=== PATIENT | male | born 1950 | race African-American/Black ===

== ENCOUNTER 2017-02-21 22:10 | Inpatient (IN) | payer OTHER, MEDICAID ==
--- NOTE | 2017-02-21 22:34 | EDPHY ---
H & P Time Seen by Provider: 02/21/17 22:27 HPI/ROS: Chief Complaint: Weakness, confusion HPI: 67-year-old male with past medical history seizure disorder, hypertension is presenting with 2 days of increasing weakness and confusion. Patient reported that he went for a walk on Friday. On Friday noticed leg weakness. He has had several falls and states that his dog is not come down. He is describing weakness in both of his legs equal on both sides. Daughter also noted that his face seems more puffy than normal. He has also been complaining of some ringing in his ears earlier tonight. He is normally alert an oriented to person place and time. At this time he is only oriented x2. Denies any fevers or chills. No cough. Denies headache. No nausea or vomiting. Patient states that he has been taking his medications however his daughter reports that he is only taking them intermittently and she is finding them around the house. He has a visiting nurse that comes in once a week to arrange his medications. Otherwise he lives alone but doctors been staying with him for the last 2 days. She denies any seizure activity. In addition to his usual medications he does occasionally take oxycodone for chronic pain but has not been taking this significantly recently. Patient states that he is having a hard time getting up and generally walking around the house. No difficulty with urination. No numbness or tingling. No back pain. ROS: 10 point Review of Systems is negative except as noted in the HPI. PMH: Hypertension, seizure disorder Social History: Positive for smoking, drinks alcohol at most 2 times a week, no recreational drug use Family History: non-contributory Physical Exam: Gen: Awake, Alert, No Distress, oriented only x2 HEENT: Nose: no rhinorrhea Eyes: PERRLA, EOMI Mouth: Moist mucosa Neck: Supple, no JVD Chest: nontender, lungs clear to auscultation Heart: S1, S2 normal, no murmur Abd: Soft, non-tender, no guarding Back: no CVA tenderness, no midline tenderness Ext: no edema, non-tender Skin: no rash Neuro: CN II-XII intact, Sensation grossly intact, he has 5 in 5 upper extremity strength, 3 on 5 lower extremity strength bilaterally. He has decreased deep tendon reflexes in his patellar reflexes. Toes are downgoing. 2 + DP and PT pulses. Capillary refills less than 2 seconds. - Personal History Tetanus Vaccine Date: within last 10 years - Medical/Surgical History Hx Asthma: No Hx Chronic Respiratory Disease: No Hx Diabetes: No Hx Cardiac Disease: No Hx Renal Disease: Yes Hx Cirrhosis: No Hx Alcoholism: No Hx HIV/AIDS: No Hx Splenectomy or Spleen Trauma: No Other PMH: PMH: HTN, seizure disorder, arthritis in B knees, craniotomy due to brain aneurysm - Social History Smoking Status: Current every day smoker Constitutional: Initial Vital Signs Temperature (C) 37.1 C 02/21/17 22:15 Heart Rate 69 02/21/17 22:15 Respiratory Rate 18 02/21/17 22:15 Blood Pressure 207/128 H 02/21/17 22:15 O2 Sat (%) 96 02/21/17 22:15 O2 Delivery Mode Room Air Allergies/Adverse Reactions: aspirin [Aspirin] Allergy (Unknown, Verified 02/21/17 22:28) ibuprofen Allergy (Unknown, Verified 02/21/17 22:28) Home Medications: Medication Instructions Recorded Keppra 1000 mg 1,000 mg PO BID 08/04/15 lamOTRIGine [Lamotrigine] 200 mg PO TID 08/05/15 oxyCODONE HCL/ACETAMINOPHEN 1 each PO Q6H PRN 08/05/15 [Percocet 10-325 mg Tablet] Verapamil ER [Calan SR/ER 120MG 120 mg PO DAILY@08 #30 tab 08/12/15 (*)] Lisinopril 10/24/15 Peg 3350/Na Sulf,Bicarb,Cl/KCl 4,000 ml PO AD #1 btl 04/19/16 [Golytely (RX)] Amitiza 02/21/17 Metoprolol Tartrate 02/21/17 Medical Decision Making - Diagnostics EKG Interpretation: ECG time 10:57 p.m., sinus rhythm with a rate of 63, normal axis, there is a first-degree AV block. There is evidence of LVH when he has a repolarization pattern in V2. Does have T-wave inversions in for the 4 through V6. These are new as compared to an ECG from August 10, 2015. Imaging Results: CT scan of the head shows no bleed, no mass, there is an old aneurysm clip on the right with chronic encephalomalacia. There is a small increase in the left lacunar infarct compared to his study from 2016. Study interpreted by Dr. Kaufman Imaging: Discussed imaging studies w/ director call center sales Radiologist ED Course/Re-evaluation: 67-year-old male with increasing weakness. No focal neurologic deficit on examination. ECG shows some new T-wave inversions but nothing else acute. Blood work is entirely normal. CT scan shows a new looking increased from prior but no other abnormalities. He is awake and alert but oriented only x2. Still awaiting a urinalysis. I have discussed with Dr. Mcmahon, hospitalist. She will admit to her service for further evaluation. Patient is noted to be hypertensive to 210 systolic on presentation. I have given 5 mg of labetalol. Blood pressure systolic came down to 177. Patient is without complaint resting comfortably. - Data Points Laboratory Results: Laboratory Results 02/21/17 22:15 02/21/17 22:15 02/21/17 02/21/17 02/21/17 22:15 22:15 00:20 WBC 4.43 10^3/uL 10^3/uL (3.80-9.50) RBC 5.34 10^6/uL 10^6/uL (4.40-6.38) Hgb 16.1 g/dL g/dL (13.7-17.5) Hct 48.3 % % (40.0-51.0) MCV 90.4 fL fL (81.5-99.8) MCH 30.1 pg pg (27.9-34.1) MCHC 33.3 g/dL g/dL (32.4-36.7) RDW 12.7 % % (11.5-15.2) Plt Count 162 10^3/uL 10^3/uL (150-400) MPV 11.7 fL fL (8.7-11.7) Neut % (Auto) 55.9 % % (39.3-74.2) Lymph % (Auto) 29.6 % % (15.0-45.0) [place] % (Auto) 12.2 % % (4.5-13.0) Eos % (Auto) 1.6 % % (0.6-7.6) Baso % (Auto) 0.5 % % (0.3-1.7) Nucleat RBC Rel Count 0.0 % % (0.0-0.2) Absolute Neuts (auto) 2.48 10^3/uL 10^3/uL (1.70-6.50) Absolute Lymphs (auto) 1.31 10^3/uL 10^3/uL (1.00-3.00) Absolute Monos (auto) 0.54 10^3/uL 10^3/uL (0.30-0.80) Absolute Eos (auto) 0.07 10^3/uL 10^3/uL (0.03-0.40) Absolute Basos (auto) 0.02 10^3/uL 10^3/uL (0.02-0.10) Absolute Nucleated RBC 0.00 10^3/uL 10^3/uL (0-0.01) Immature Gran % 0.2 % % (0.0-1.1) Immature Gran # 0.01 10^3/uL 10^3/uL (0.00-0.10) Sodium 144 mEq/L mEq/L (134-144) Potassium 4.2 mEq/L mEq/L (3.5-5.2) Chloride 110 mEq/L mEq/L (97-110) Carbon Dioxide 21 mEq/l L mEq/l (22-31) Anion Gap 13 mEq/L mEq/L (8-16) BUN 16 mg/dL mg/dL (7-23) Creatinine 1.3 mg/dL mg/dL (0.7-1.3) Estimated GFR 55 Glucose 87 mg/dL mg/dL (70-100) Calcium 10.2 mg/dL mg/dL (8.5-10.4) Total Bilirubin 0.8 mg/dL mg/dL (0.1-1.4) Conjugated Bilirubin 0.4 mg/dL mg/dL (0.0-0.5) Unconjugated Bilirubin 0.4 mg/dL mg/dL (0.0-1.1) AST 22 IU/L IU/L (17-59) ALT 32 IU/L IU/L (21-72) Alkaline Phosphatase 113 IU/L IU/L (38-126) Troponin I < 0.012 ng/mL ng/mL (0-0.034) Total Protein 8.5 g/dL H g/dL (6.3-8.2) Albumin 4.4 g/dL g/dL (3.5-5.0) Lipase 38.0 IU/L IU/L (23-300) Urine Color Pending Urine Appearance Pending Urine pH Pending Ur Specific [place] Pending Urine Protein Pending Urine Ketones Pending Urine Blood Pending Urine Nitrate Pending Urine Bilirubin Pending Urine Urobilinogen Pending Ur Leukocyte Esterase Pending Urine Glucose Pending Medications Given: Discontinued Medications Labetalol HCl (Trandate Injection) 5 mg IVP ONCE ONE Stop: 02/21/17 23:31 Last Admin: 02/21/17 23:36 Dose: 5 mg Departure - Departure Clinical Impression: Weakness Condition: Fair Referrals: Patient,NotPresent [Primary Care Provider] - As per Instructions
[2017-02-21 22:36] LABS: % IMMATURE GRANULYOCYTES 0.2 % (0.0-1.1); ABSOLUTE IMMATURE GRANULOCYTES 0.01 10^3/uL (0.00-0.10); ADD DIFF? NO; ADD MORPH? NO; ADD SCAN? NO; ATYPICAL LYMPHOCYTE FLAG 20 (0-99); FRAGMENT RBC FLAG 0 (0-99); HEMATOCRIT 48.3 % (40.0-51.0); HEMOGLOBIN 16.1 g/dL (13.7-17.5); LEFT SHIFT FLG 0 (0-99); LIPEMIA HEMOLYSIS FLAG 80 (0-99); MEAN CELL HEMOGLOBIN 30.1 pg (27.9-34.1); MEAN CELL HEMOGLOBIN CONCENTR. 33.3 g/dL (32.4-36.7); MEAN CELL VOLUME 90.4 fL (81.5-99.8); MEAN PLATELET VOLUME 11.7 fL (8.7-11.7); PLATELET CLUMPS FLAG 0 (0-99); PLATELET COUNT 162 10^3/uL (150-400); RED BLOOD CELL COUNT 5.34 10^6/uL (4.40-6.38); RED CELL DISTRIBUTION WIDTH 12.7 % (11.5-15.2)
[2017-02-21 22:43] LABS: ALANINE AMINOTRANSFERASE 32 IU/L (21-72); ALBUMIN 4.4 g/dL (3.5-5.0); ALKALINE PHOSPHATASE 113 IU/L (38-126); ANION GAP 13 mEq/L (8-16); ASPARTATE AMINOTRANSFERASE 22 IU/L (17-59); BILIRUBIN,TOTAL 0.8 mg/dL (0.1-1.4); BILIRUBIN-CONJUGATED 0.4 mg/dL (0.0-0.5); BILIRUBIN-UNCONJUGATED 0.4 mg/dL (0.0-1.1); CALCIUM 10.2 mg/dL (8.5-10.4); CARBON DIOXIDE 21 mEq/l (22-31); CHLORIDE 110 mEq/L (97-110); CREATININE 1.3 mg/dL (0.7-1.3); GLOMERULAR FILTRATION RATE 55; GLUCOSE 87 mg/dL (70-100); POTASSIUM 4.2 mEq/L (3.5-5.2); SODIUM 144 mEq/L (134-144); TOTAL PROTEIN 8.5 g/dL (6.3-8.2)
[2017-02-21 22:53] LABS: TROPONIN I < 0.012 ng/mL (0-0.034)
--- NOTE | 2017-02-21 22:59 | CPEKG ---
Heart Rate: 63 RR Interval: 952 P-R Interval: 264 QRSD Interval: 96 QT Interval: 424 QTC Interval: 435 P [place]: 52 QRS [place]: -16 T Wave [place]: 126 EKG Severity - ABNORMAL ECG - EKG Impression: SINUS RHYTHM EKG Impression: FIRST DEGREE AV BLOCK EKG Impression: PROBABLE LVH WITH SECONDARY REPOL ABNRM EKG Impression: New t-wave conversions compated to prior Electronically Signed By: Hung Mendes 22-Feb-2017 00:46:28
[2017-02-21] MEDS ORDERED: LABETALOL HCL 50 MG/10 ML SYR IVP ONE (23:19)
[2017-02-21] MEDS ORDERED: LABETALOL HCL 5 MG/ML 20 ML MDV IVP ONE (23:30)
[2017-02-22 00:39] LABS: COLOR YELLOW; LEUKOCYTE ESTERASE,URINE NEGATIVE (NEGATIVE); NITRITE,URINE NEGATIVE (NEGATIVE)
[2017-02-22 01:01] LABS: MUCUS TRACE /lpf (NONE-1+)
[2017-02-22] MEDS ORDERED: ONDANSETRON 4 MG/2 ML VIAL IVP PRN (01:16)
[2017-02-22] MEDS ORDERED: ACETAMINOPHEN 325 MG TAB PO PRN (01:16)
[2017-02-22] MEDS ORDERED: ONDANSETRON DISINTEGRATING 4 MG TAB PO PRN (01:16)
[2017-02-22] MEDS ORDERED: LABETALOL HCL 5 MG/ML 20 ML MDV IVP PRN ×2 (01:16→08:50)
[2017-02-22] MEDS ORDERED: LABETALOL HCL 200 MG in D5W 200 ML IV SCH (02:00)
[2017-02-22] MEDS: ASPIRIN 81 MG CHEWABLE TAB PO SCH ×2 (02:03→09:53)
--- NOTE | 2017-02-22 03:57 | GHP ---
[f rep st] HISTORY AND PHYSICAL DATE OF ADMISSION: 02/22/2017 CHIEF COMPLAINT: Weakness and falls. 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 He lives at home independently though his daughter has been staying with him recently. He has a home health care nurse who helps him with his medications but apparently the daughter frequently finds pills about the house. She states 2 days prior to admission she left for work in the morning and he was in his usual state of health. When she returned home that evening she noted that he was slurring his words and had some jumbled speech. She also noted increased weakness and difficulty with ambulation with gait abnormalities. He has had at least 2 falls since then. He did hit his head, but denied LOC. Daughter states that over the past 2 days his weakness and speech problems have persisted and today she called 911. Upon arrival to the Emergency Department, he had a blood pressure of 207/128. He has denied headaches, vision changes, chest pain, or shortness of breath. He is overall a poor historian and most of the history is obtained from his daughter. He actually has 3 daughters present at the bedside. They report decreased oral intake the past couple of days. We also discussed his chronic opioid use. He takes OxyContin 30 mg twice daily although frequently he only takes it once a day. He denies any abdominal pain, nausea, vomiting, diarrhea, or changes in his bowel or bladder habits. Given his weakness, difficulty with ambulation, and persistent hypertension he is admitted to the hospital for further management. PAST MEDICAL/SURGICAL HISTORY: 1. Hypertension. 2. History of brain aneurysm requiring craniotomy 20 years ago with subsequent seizure disorder. 3. Chronic pain due to degenerative joint disease. 4. Chronic continuous opioid dependence. 5. History of embolic CVA approximately 5 years ago. 6. Pulmonary hypertension. 7. COPD. 8. History of alcohol abuse though he has apparently been sober for at least several months. MEDICATIONS: Please see [facility] for complete updated outpatient medication list. ALLERGIES: Aspirin and ibuprofen. Please note he does not actually have an allergy to aspirin but they think that he has been told in the past not to take it. SOCIAL HISTORY: The patient lives alone. His daughter is currently staying with him. He has home healthcare services. He smokes 5-6 cigarettes per day. He used to have significant alcohol intake, though he and his daughter both confirm that he has not been drinking at all over the past several months. He denies other illicit drug use. FAMILY HISTORY: Positive for hypertension. REVIEW OF SYSTEMS: A 10-point review of systems was performed and is negative except as per HPI. OBJECTIVE: VITAL SIGNS: Temperature 36.9, current blood pressure 198/93, heart rate 58, respiratory rate 16; he is 94% on room air. GENERAL: The patient is awake, alert, oriented to person and place in no acute distress. HEENT: Head is atraumatic, normocephalic. Pupils are equal, round, and reactive to light. Extraocular motions are intact. Oropharynx is clear. Mucous members are moist. NECK: Supple. There is no JVD. HEART: Regular rate and rhythm. LUNGS: Clear to auscultation bilaterally. ABDOMEN: Soft, nondistended, nontender. Normoactive bowel sounds. EXTREMITIES: Without cyanosis, clubbing, or edema. NEUROLOGIC: There is no facial asymmetry. He has a low voice so speech is relatively fluent. Pronator drift is negative. He has 5/5 proximal muscle strength in bilateral upper extremities. There is slightly decreased muscle strength in the proximal left lower extremity compared to the right. This was reportedly residual from his previous stroke. LABORATORY DATA: CBC is completely normal. Complete metabolic panel is remarkable for a CO2 of 21. Troponin is negative. LFTs are normal. Chest x-ray is personally reviewed and interpreted, shows mildly enlarged heart though no acute cardiopulmonary abnormalities. EKG shows normal sinus rhythm. T-wave inversions in the lateral leads are noted with some very slight downsloping ST depression in V5. This is new compared to his prior EKGs. Head CT shows no evidence of intracranial hemorrhage. There is a large area of right frontotemporal encephalomalacia which is unchanged related to prior craniotomy. An aneurysm clip adjacent to the right internal carotid artery shows no change. There was also unchanged lacunar infarct in the right internal capsule; however, a smaller lacunar infarct in the left internal capsule is more apparent today with no mass effect. ASSESSMENT AND PLAN: The patient is a 67-year-old male with history of hypertension, prior intracranial hemorrhage as well as history of prior embolic stroke who presents to the emergency department with weakness, falls and recent speech changes. 1. Weakness with recurrent falls, possibly secondary to new lacunar stroke. He did hit his head with the fall. No bleed on head CT, which is suspicious for a new lacunar infarct in the left internal capsule. He cannot undergo MRI due to his prior aneurysm clips, will check CTA head and neck. I discussed the case with [facility]. Given that he is greater than 24 hours since presumed event, will proceed with lowering his blood pressure by 20% to 25%. He is started on a labetalol drip for tonight with a goal systolic blood pressure of 160. Tomorrow, when his med rec is completed, he can be restarted on his outpatient oral medications and up titrated as necessary to wean off the drip. He is also started on an aspirin and statin. Lipid panel in AM, along with echo. Neurology consult requested. PT/OT is ordered. 2. Hypertensive urgency. It is possible he developed a hypertensive encephalopathy contributing to his symptoms over the past 2 days. As above, will reduce his systolic blood pressure 20% to 25% tonight with labetalol drip and resume oral medications in the morning. 3. Abnormal EKG. He has new T-wave inversions in the lateral leads with mildly downsloping ST segments. He is chest pain free. Initial troponin is negative. Will trend his Troponins and repeat an EKG in the morning. He likely warrants nuclear medicine stress testing during this admission. 4. Chronic pain secondary to degenerative joint disease with chronic continuous opioid dependence. His outpatient OxyContin dose is 30 mg b.i.d., however, his UDS is negative for opiates. This raises concern for diversion. Will request case management consult and would recommend a pill count. 5. Seizure disorder. This was subsequent to a brain aneurysm 20 years ago. The patient is maintained on Keppra and Lamictal. He took his evening doses and these will need to be resumed in the morning once his med rec is completed. 6. Chronic obstructive pulmonary disease. There is no evidence of an acute exacerbation. He is on room air. Will give him q.i.d. DuoNeb and I have encouraged tobacco cessation. 7. Pulmonary hypertension. I reviewed his echo from July 2015 which showed a right ventricular systolic pressure of 60. Per chart review, he has been evaluated for chronic thromboembolic disease in the past which was unrevealing. This may be secondary to his chronic lung disease. Recommend outpatient pulmonology follow up. 8. Deep venous thrombosis prophylaxis. Patient is high risk. Will start Lovenox. 9. Code status. Patient is full code. 10. Disposition. Patient is admitted to inpatient status as he will likely require greater than 48 hours hospitalization for ongoing management of his hypertension, weakness and falls. /[id number]/MODL MTDD
[2017-02-22] MEDS: IPRATROPIUM/ALBUTEROL 3 ML DEYVIAL IH SCH ×4 (06:11→22:12)
[2017-02-22 06:40] LABS: CHOLESTEROL 166 mg/dL (140-220); CHOLESTEROL/HDL RATIO 4.26 RATIO (1.00-4.97); HIGH DENSITY LIPOPROTEIN 39 mg/dL (40-65); LDL/HDL RATIO 2.95 RATIO (1.00-3.64); LOW DENSITY LIPOPROTEIN 115 mg/dL (80-100); NON-HIGH DENSITY LIPOPROTEIN 127 mg/dL (90-129); TRIGLYCERIDE 62 mg/dL (40-150); VERY LOW DENSITY LIPOPROTEINS 12 mg/dL (8-25)
--- NOTE | 2017-02-22 08:54 | HOSPPROG ---
Hospitalist Progress Note Assessment/Plan: #Lacunar stroke: Neuro does not think acute. Likely due to uncontrolled BP. Goal is to optimize medical management. ASA, BP control for >160. Resume home meds. PT/OT. Echo pending. Statin #Acute encephalopathy: spoke with daughter. Normally very outgoing, A&Ox3. Def a change in mental status per her report. Has pill machine, thus not taking more narcotics than prescribed. No electrolyte derangements #Hypertensive urgency: SBP >200 at admission. Initially treated with Labetalol gtt, now off. Will resume home medications with gradual reduction to normotensive #h/o seizures: no recent episodes. K[place]i, Lamictal #Tobacco abuse: counseled on cessation #Diet: cardiac #DVT ppx: Lovenox #Disp: daughters to meet with CM to discuss SNF vs home care Subjective: denies MONROY, CP or SOB Objective: Vital Signs Temp Pulse Resp BP Pulse Ox 37.1 C 69 16 149/83 H 95 02/22/17 08:00 02/22/17 08:00 02/22/17 08:00 02/22/17 08:00 02/22/17 08:00 02/21/17 02/22/17 02/23/17 05:59 05:59 05:59 Intake Total 50 Balance 50 - Physical Exam Constitutional: no apparent distress Eyes: PERRL Ears, Nose, Mouth, Throat: moist mucous membranes Cardiovascular: regular rate and rhythym Respiratory: no respiratory distress Gastrointestinal: normoactive bowel sounds Genitourinary: no bladder fullness Skin: warm Musculoskeletal: other (min LUE weakness) Neurologic: AAOx3, CN II-XII Intact Psychiatric: flat affect (talks slowly and will not give eye contact) ICD10 Worksheet Patient Problems: Problems Problem Status Onset Weakness Acute Acute renal failure Acute Constipation Acute Fall Acute Hypotension Acute
[2017-02-22] MEDS: ATORVASTATIN CALCIUM 40 MG TAB PO SCH (09:53)
[2017-02-22] MEDS: ENOXAPARIN 40 MG/0.4 ML SYR SC SCH (09:54)
[2017-02-22] MEDS ORDERED: IOPAMIDOL (ISOVUE 370) 100 ML BTL IV ONE (10:17)
--- NOTE | 2017-02-22 10:47 | CPEKG ---
Heart Rate: 72 RR Interval: 833 P-R Interval: 268 QRSD Interval: 102 QT Interval: 428 QTC Interval: 469 P [place]: 29 QRS [place]: -23 T Wave [place]: 215 EKG Severity - ABNORMAL ECG - EKG Impression: SINUS RHYTHM EKG Impression: FIRST DEGREE AV BLOCK EKG Impression: PROBABLE LEFT VENTRICULAR HYPERTROPHY EKG Impression: BORDERLINE T ABNORMALITIES, INFERIOR LEADS Electronically Signed By: Jc Grant 24-Feb-2017 12:27:24
[2017-02-22] MEDS ORDERED: AMITIZA 24 MCG PO SCH (11:00)
[2017-02-22] MEDS ORDERED: KEPPRA 1000 MG PO SCH (11:00)
[2017-02-22] MEDS: levETIRAcetam 500 MG TAB PO SCH ×2 (11:48→20:16)
[2017-02-22] MEDS: LUBIPROSTONE 24 MCG CAP PO SCH ×2 (11:48→21:15)
--- NOTE | 2017-02-22 12:52 | PDCONSULT ---
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 Patient's daughter, with whom he lives, is here at bedside at supplied the bulk of the history. Patient is apparently a normally boisterous and mobile gentleman. He does require home health aide for help with ADLs and medication administration. He walks every day using one or two canes. On Friday, 02/19, he had gone for a walk and was feeling quite unsteady, feeling weakness in both legs. He did fall several times. His daughter had noted he seemed more withdrawn than usual. There was indication his speech was perhaps a bit slurred, but no facial weakness. His PO intake had reduced. On the day of admission, he was acting odd, saying he had to put a towel over his head to make sounds inside his head go away. This inspired activation of EMS. He was brought to our facility and found to be markedly hypertensive with SBPs in the 190s-200s. Labetalol was administered. Metabolic and infectious screening were unremarkable. UDS was negative. A CT head wo was done showing known large area of chronic encephalomalacia in the right frontotemporal regions, chronic lacunar infarct in the right internal capsule, RMCA clip artifact. A new lacunar infarct in the left internal capsule was identified, appearing chronic, but new since his last CT head wo on 08/04/15. CTA of the head and neck was done showing some mild calcification of the carotid bulbs, RMCA clip artifact, but no hemodynamically significant stenosis or thrombotic occlusive disease or new aneurysm/dissection. On the floor, a labetalol drip was started. His SBPs have improved into the 150s, though the drip was stopped this AM and his SBPs have accelerated into the 170s. His daughter states he continues to seem more withdrawn, but gait is improving. There was no indication of new focal weakness , sensory loss, visual disturbance, language disturbance, MONROY, fevers, chills, neck stiffness, photophobia. ROS: As per the HPI, otherwise a complete 12 point ROS was performed and is negative ALLERGIES AND MEDS: As recorded in the EMR - reviewed and reconciled PFSH: As per the intake H&P by Dr. Mcmahon from yesterday EXAM: VS reviewed in EMR GEN: WDWN laying in NAD HEENT: NCAT, sclera anicteric, conjunctiva not injected, MMM, oropharynx clear, no scalp tenderness NECK: supple, nontender, no meningismus CV: RRR s1 s2 wo m/r/c/g. Carotid pulses 2+ wo bruit NEURO: MS: awake, alert, oriented to all spheres. He is bradyphrenic. Speech is hypophonic and bradykinetic. Tends to perseverate. No language disturbance. Follows commands. Attends to both sides. Some episodic memory impairment on casual conversation. Utilization behavior noted. Mood depressed. Adequate fund of knowledge. CN: pupils 4mm round and reactive. Intolerant of fundoscopy. VFF. Primary gaze centered. Full ocular motility, but smooth pursuit with saccadic intrusions. Facial sensation preserved. Face symmetric. Hearing grossly intact to finger rub. Palatoglossal movements intact. Shoulder shrug and head turn strong. MOTOR: normal bulk. Some trace spasticity in the LUE about the elbow. No adventitial movements. Trace UMN pattern of weakness in the LUE/LLE, otherwise full power. SENSORY: intact LT/PP throughout and symmetric. No extinction. COORD: no ataxia FN/HS. Mignon bradykinetic -1. Romberg pos. REFLEX: plantar equivocal left, down righ. No clonus. He persistently activates with DTR testing. GAIT: rises pushing of chair with arms. He has a narrow base. Arm swing a bit reduced. Some mild shortening of stride length. Able to turn in 3 steps. DATA REVIEW: Labs reviewed in EMR LDL 115 A1c pending PERSONALLY INTERPRETED RESULTS AND DATA: CT head wo and CTA head/neck per the HPI IMPRESSION AND RECOMMENDATIONS: // SUSPECT HYPERTENSIVE EMERGENCY // HX MULTIPLE STROKES // HX REMOTE RMCA ANEURYSM WITH CLIPPING // HTN // HLD // TOBACCO ABUSE WITH CIGARETTES // HX GAIT DYSFUNCTION // HX OF SYMPTOMATIC SEIZURES Patient with altered mental status, some slurred speech, gait dysfunction with sense of bilateral leg weakness that has improved with lowering of his blood pressure. I don't see anything focal on exam, with exception of known chronic left hemiparesis. He is a bit slow, with some parkinsonian features as outlined in my exam, but otherwise no major deficits - this may be from decompensation of prior vascular insults. Same for his perseveration and utilization behavior, which is likely from decompensated frontal lobe pathology. His CT shows an interval left capsular lacunar infarct, but this is chronic appearing and certainly wouldn't account for his constellation of symptoms. I am more suspicious for the profound HTN causing his symptoms - he has a brain at increased risk for systemic insults given his prior strokes. Though I don't think he's had an acute stroke, I do think this presents an opportunity for secondary prevention optimization. He is not on an antiplatelet - his daughter is not sure why. I would recommend he stay on daily aspirin therapy. BP should be normalized, with gradual reduction during hospitalization, intervening for sustained SBPs > 160. Long-term goal is going to be as close to normotension as possible, as HTN is the number one risk factor for stroke and aneurysm formation. He should be on a statin for goal LDL < 70. A1c goal < 6.5. I discussed smoking cessation with his daughter. Further BP management per the primary team. Metabolic optimization per primary team. He should followup with his PCP for very close and aggressive surveillance and optimization of vascular risk factors as noted above. Cont antiseizure drug regimen. Followup with his outpatient neurologist for regular neurologic followup, seizure management, stroke prevention monitoring as noted above. I informed the patient's daughter that I would be happy to see him in outpatient followup for stroke management - daughter states she's never been told he's had a stroke and is unsure why he is not on stroke prevention medical therapies. Will sign off. Please recall as needed.
[2017-02-22] MEDS ORDERED: NON-FORMULARY NEW DRUG (Oxycodone Hcl/Acetaminophen [Percocet 10-325 Mg Tablet] 1 EACH) PO PRN (12:54)
[2017-02-22] MEDS ORDERED: OXYCODONE/APAP 5/325 TAB PO PRN (12:59)
[2017-02-22] MEDS ORDERED: oxyCODONE IR 5 MG TAB PO PRN (13:00)
--- NOTE | 2017-02-22 14:08 | ECHO ---
[id number] + + [address] : : [place] [address] : : [phone] + + Adult Echocardiographic Report + ----+ :Name: ALEXA CHAUDHARI VStudy Date: 02/22/2017 12:52 PM : : Hospital Admission Number: [id number] Location: 241: :: 1950 Gender: Male Height: 76 in : :Age: 67 yrs Race: BAA Weight: 240 lb : :Reason For Study: Eval LV Fx : : BSA: 2.4 meters2 : :History: CVA, HTN Crisis : + ----+ MMode/2D Measurements \T\ Calculations IVSd: 1.6 cm LVIDd: 4.3 cm FS: 33.8 % Ao root diam: 4.0 cm LVPWd: 1.6 cm LVIDs: 2.9 cm EDV(Teich): 84.8 ml ACS: 2.0 cm ESV(Teich): 31.5 ml EF(Teich): 62.9 % Normal Measurement Values: + + :LVIDd (3.5-5.7cm) IVSd (0.6-1.1cm) LVPWd (0.6-1.1cm) Aortic Root (2.0-3.7cm)Left Atrium (1.5-4.0cm): :LV Vol(d) (76-115ml) LV Vol(s) (29-48ml) Ejec Fraction (50-65%)PV Palmer (0.6- 1.2m/s) TV Palmer (0.4-1.0m/s) : :MV E Palmer (0.8-1.0m/s)MV A Palmer (0.3-1.0m/s)LVOT Palmer (0.7-1.2m/s) Asc Ao Palmer ( 0.9-1.8m/s) : + + Doppler Measurements \T\ Calculations MV E max palmer: Ao V2 max: LV V1 max: PA V2 max: 35.0 cm/sec 118.1 cm/sec 74.0 cm/sec 107.2 cm/sec MV A max palmer: Ao max PG: LV V1 max PG: PA max P.0 cm/sec 5.6 mmHg 2.2 mmHg 4.6 mmHg MV E/A: 0.46 TR max palmer: 194.1 cm/sec TR max P.1 mmHg RAP systole: 5.0 mmHg RVSP(TR): 20.1 mmHg Left Ventricle The left ventricle is normal in size. No LV thrombus noted. Moderate to severe concentric LVH noted. The left ventricular ejection fraction is normal. There is Doppler evidence for diastolic dysfunction. LVEF = 63%. The left ventricular wall motion is normal. Right Ventricle The right ventricle is normal in size and function. Atria Mild LAE noted. No ASD or PFO noted. Right atrial size is normal. Injection of contrast documented no interatrial shunt. The interatrial septum is intact with no evidence for an atrial septal defect. Mitral Valve The mitral valve is normal in structure and function. There is no evidence of mitral valve prolapse. There is no mitral valve stenosis. No MR noted. Tricuspid Valve Normal tricuspid valve. There is trace to mild tricuspid regurgitation. Right ventricular systolic pressure is normal. Aortic Valve The aortic valve is normal in structure and function. The aortic valve is trileaflet. There is no aortic stenosis. There is no aortic insufficiency. Pulmonic Valve The pulmonic valve is normal in structure and function. There is no pulmonic valvular regurgitation. Great Vessels Ascending thoracic aorta mildly enlarged (4.0cm). Pericardium/Pleural There is no pericardial effusion. Conclusion A complete two-dimensional transthoracic echocardiogram was performed (2D, M-mode, Doppler and color flow Doppler). 1)Normal LV size and systolic function with a LVEF of 63% and normal wall motions. 2)Moderate to severe concentric LVH noted with diastolic dysfunction. 3)Mild left atrial enlargement. 4)Trivial TR with estimated normal PA pressures. 5)Mildly enlarged ascending thoracic aorta (4.0cm). 6)Negative IV bubble with no suggestion of PFO or ASD. 7)No LV thrombus noted. Final Reading Physician: Lui Graham electronically signed on 02/22/2017 02:06 PM Ordering Physician: Sofya Mcmahon Performed By: Juan C Gallego, CS
[2017-02-22] MEDS: LISINOPRIL 40 MG TAB PO SCH (14:43)
[2017-02-22] MEDS ORDERED: NON-FORMULARY NEW DRUG (Lamotrigine [Lamotrigine] 200 MG) PO SCH (16:00)
[2017-02-22] MEDS: lamoTRIgine 100 MG TAB PO SCH ×2 (16:51→20:15)
[2017-02-22] MEDS: METOPROLOL TARTRATE 100 MG TAB PO SCH (18:14)
[2017-02-22] MEDS: oxyCODONE CR 30 MG TAB PO SCH (20:15)
[2017-02-22] MEDS ORDERED: METOPROLOL TARTRATE 100 MG TAB PO SCH (21:00)
[2017-02-23] MEDS ORDERED: LABETALOL HCL 5 MG/ML 20 ML MDV IVP PRN (00:07)
[2017-02-23 05:30] LABS: ANION GAP 14 mEq/L (8-16); CALCIUM 9.4 mg/dL (8.5-10.4); CARBON DIOXIDE 22 mEq/l (22-31); CHLORIDE 110 mEq/L (97-110); CREATININE 1.1 mg/dL (0.7-1.3); GLOMERULAR FILTRATION RATE > 60; GLUCOSE 91 mg/dL (70-100); POTASSIUM 3.4 mEq/L (3.5-5.2); SODIUM 146 mEq/L (134-144)
[2017-02-23] MEDS: IPRATROPIUM/ALBUTEROL 3 ML DEYVIAL IH SCH ×4 (05:30→21:00)
[2017-02-23] MEDS ORDERED: VERAPAMIL ER 120 MG TAB PO SCH (08:00)
[2017-02-23] MEDS: ASPIRIN 81 MG CHEWABLE TAB PO SCH ×2 (08:07→10:02)
[2017-02-23] MEDS: hydrALAZINE 10 MG TAB PO SCH ×2 (08:07→18:52)
[2017-02-23] MEDS: ENOXAPARIN 40 MG/0.4 ML SYR SC SCH (08:07)
[2017-02-23] MEDS: lamoTRIgine 100 MG TAB PO SCH ×3 (08:07→23:06)
[2017-02-23] MEDS: METOPROLOL TARTRATE 100 MG TAB PO SCH ×2 (08:07→20:14)
[2017-02-23] MEDS: oxyCODONE CR 30 MG TAB PO SCH ×2 (08:08→20:14)
[2017-02-23] MEDS: LISINOPRIL 40 MG TAB PO SCH (08:08)
[2017-02-23] MEDS: ATORVASTATIN CALCIUM 40 MG TAB PO SCH (08:08)
[2017-02-23] MEDS: levETIRAcetam 500 MG TAB PO SCH ×2 (08:08→20:13)
--- NOTE | 2017-02-23 08:28 | HOSPPROG ---
Hospitalist Progress Note Assessment/Plan: #Old lacunar stroke: likely due to uncontrolled BP. LVH on TTE, no PFO. Goal is to optimize medical management. ASA, statin, BP control. Resume home meds. PT/OT. #Reported ASA allergy: I discussed with pt, has says no allergy at takes at home without issue #Med error: was dosed Epivir x 2 yesterday with subsequent diarrhea. Explained to pt. Med event was done. Loperamide #CAD: TTE shows LVH, no WMA. EKG with deeper TWIs likely with uncontrolled BP, will given risk factors, will eval with nuc stress #Hypokalemia: repleted #Acute encephalopathy: resolved #Hypertensive urgency: SBP now 140s on home meds #HLD: statin #h/o seizures: no recent episodes. Alysa Gomez #Tobacco abuse: counseled on cessation #Diet: cardiac #DVT ppx: Lovenox #Disp: PT to evaluate today, daughters deciding on SNF Subjective: diarrhea overnight. Med error, was dosed Objective: Vital Signs Temp Pulse Resp BP Pulse Ox 36.7 C 66 14 144/91 H 99 02/23/17 08:00 02/23/17 08:00 02/23/17 08:00 02/23/17 08:00 02/23/17 08:00 Laboratory Results 02/23/17 04:50 02/22/17 02/23/17 02/24/17 05:59 05:59 05:59 Intake Total 250 Output Total 300 Balance -50 - Physical Exam Constitutional: no apparent distress Eyes: PERRL Ears, Nose, Mouth, Throat: moist mucous membranes Cardiovascular: regular rate and rhythym Respiratory: no respiratory distress, no rales or rhonchi Gastrointestinal: normoactive bowel sounds, soft, non-tender abdomen Genitourinary: no bladder fullness Skin: warm Musculoskeletal: full muscle strength (mild LUE weakness) Neurologic: AAOx3, CN II-XII Intact Psychiatric: flat affect ICD10 Worksheet Patient Problems: Problems Problem Status Onset Weakness Acute Acute renal failure Acute Constipation Acute Fall Acute Hypotension Acute
[2017-02-23] MEDS: LUBIPROSTONE 24 MCG CAP PO SCH ×2 (09:31→20:13)
[2017-02-23] MEDS ORDERED: LOPERAMIDE HCL 1 MG/5 ML UDCUP PO PRN (10:00)
[2017-02-23] MEDS ORDERED: hydrALAZINE 10 MG TAB PO PRN (16:50)
[2017-02-23] MEDS: hydrALAZINE 25 MG TAB PO SCH (23:06)
[2017-02-24 05:03] LABS: ANION GAP 11 mEq/L (8-16); CALCIUM 9.4 mg/dL (8.5-10.4); CARBON DIOXIDE 22 mEq/l (22-31); CHLORIDE 113 mEq/L (97-110); CREATININE 1.2 mg/dL (0.7-1.3); GLOMERULAR FILTRATION RATE > 60; GLUCOSE 83 mg/dL (70-100); POTASSIUM 3.8 mEq/L (3.5-5.2); SODIUM 146 mEq/L (134-144)
[2017-02-24] MEDS: IPRATROPIUM/ALBUTEROL 3 ML DEYVIAL IH SCH ×2 (07:59→11:11)
[2017-02-24] MEDS: levETIRAcetam 500 MG TAB PO SCH (08:40)
[2017-02-24] MEDS: ATORVASTATIN CALCIUM 40 MG TAB PO SCH (08:56)
[2017-02-24] MEDS: lamoTRIgine 100 MG TAB PO SCH ×3 (08:56→22:20)
[2017-02-24] MEDS: ASPIRIN 81 MG CHEWABLE TAB PO SCH (08:56)
[2017-02-24] MEDS: METOPROLOL TARTRATE 100 MG TAB PO SCH ×2 (08:57→22:18)
[2017-02-24] MEDS: LISINOPRIL 40 MG TAB PO SCH (08:57)
[2017-02-24] MEDS: hydrALAZINE 25 MG TAB PO SCH ×3 (08:57→22:21)
[2017-02-24] MEDS: ENOXAPARIN 40 MG/0.4 ML SYR SC SCH (09:13)
[2017-02-24] MEDS ORDERED: levETIRAcetam 1,000 MG in NS 100 ML IV ONE (10:08)
--- NOTE | 2017-02-24 10:15 | HOSPPROG ---
Hospitalist Progress Note Assessment/Plan: #Old lacunar stroke: likely due to uncontrolled BP. LVH on TTE, no PFO. Goal is to optimize medical management. ASA, statin, BP control. PT/OT. #Hypertensive urgency: BP better controlled. Lisinopril, Hydral TID, BB. Stopped verapamil with bradycardia and no clear indication for dual AV-lesly. No h/o a fib #Med error: was dosed Epivir x 2 yesterday with subsequent diarrhea. Explained to pt. Med event was done. Loperamide #CAD: TTE shows LVH, no WMA. Some EKG changes, Lexiscan pending #Hypokalemia: repleted #Acute encephalopathy: resolved #HLD: statin #h/o seizures: no recent episodes. KeEileen lairdal #Tobacco abuse: counseled on cessation #Diet: cardiac #DVT ppx: Lovenox #Disp: if stress normal can likely DC to SNF tomorrow Subjective: no acute events. Diarrhea resolved Objective: Vital Signs Temp Pulse Resp BP Pulse Ox 37 C 59 L 16 135/81 H 100 02/24/17 08:00 02/24/17 08:00 02/24/17 08:00 02/24/17 08:00 02/24/17 08:00 Laboratory Results 02/24/17 04:28 02/23/17 02/24/17 02/25/17 05:59 05:59 05:59 Intake Total 250 680 Output Total 300 Balance -50 680 - Physical Exam Constitutional: no apparent distress Eyes: PERRL Ears, Nose, Mouth, Throat: moist mucous membranes Cardiovascular: regular rate and rhythym, no murmur, rub, or gallop, No edema Respiratory: no respiratory distress, no rales or rhonchi Gastrointestinal: normoactive bowel sounds, soft, non-tender abdomen Genitourinary: no bladder fullness Skin: warm Musculoskeletal: full muscle strength Neurologic: AAOx3, CN II-XII Intact Psychiatric: flat affect ICD10 Worksheet Patient Problems: Problems Problem Status Onset Weakness Acute Acute renal failure Acute Constipation Acute Fall Acute Hypotension Acute
[2017-02-24] MEDS ORDERED: IPRATROPIUM/ALBUTEROL 3 ML DEYVIAL IH PRN ×2 (11:17→11:18)
[2017-02-24] MEDS: LUBIPROSTONE 24 MCG CAP PO SCH ×2 (11:49→22:21)
[2017-02-24] MEDS: oxyCODONE CR 30 MG TAB PO SCH ×2 (11:49→22:21)
[2017-02-24] MEDS ORDERED: REGADENOSON 0.4 MG/5 ML SYR IVP ONE (12:58)
--- NOTE | 2017-02-24 14:34 | CPR ---
[f rep st] NONINVASIVE CARDIAC PROCEDURE REPORT DATE OF PROCEDURE: 02/24/2017 REASON FOR TEST: 1. Hypertension. 2. Chest discomfort. INDICATIONS: Resting EKG shows regular sinus bradycardia with a 1st degree A-V block. There is lat e R-wave progression in the anteroseptal quintero. He reports that he has no chest pain or shortness o f breath prior to test. He does have a remote history of seizure, of which he has not had an event for over 10 years, according to his daughters. He and his 2 daughters, who were present in the room , were informed of the potential indication for remote seizure inducement due to the Lexiscan. They both repeat that they understand and are willing to proceed with test. The patient agrees to proce ed with the test as well. FINDINGS: 1. Resting heart rate is 51. 2. Resting blood pressure 144/85. 3. Oxygen saturation 95%. 4. In lateral V6, he does have T-wave inversion. LEXISCAN PORTION: Lexiscan was injected rapidly followed by saline flush. Lexiscan was injected at 1302:50 hours. Peak blood pressure 73. Lexiscan procedure blood pressure 132/76, oxygen saturatio n 95%. He did report feeling short of breath with mild chest discomfort after the infusion of the L exiscan. There were no indications of seizure activity. There were no EKG changes. RECOVERY: He did spontaneously recover with symptoms subsiding with caffeine. Blood pressure at re st 131/74, recovery heart rate 73, oxygen saturation 94%. At this time, he currently is stable to p roceed to imaging. /[id number]/MODL
[2017-02-24] MEDS: levETIRAcetam 1,000 MG in NS 100 ML IV SCH (22:22)
[2017-02-25 05:18] LABS: ANION GAP 11 mEq/L (8-16); CALCIUM 9.5 mg/dL (8.5-10.4); CARBON DIOXIDE 21 mEq/l (22-31); CHLORIDE 115 mEq/L (97-110); CREATININE 1.1 mg/dL (0.7-1.3); GLOMERULAR FILTRATION RATE > 60; GLUCOSE 75 mg/dL (70-100); POTASSIUM 3.8 mEq/L (3.5-5.2); SODIUM 147 mEq/L (134-144)
[2017-02-25] MEDS ORDERED: hydrALAZINE 25 MG TAB PO SCH ×3 (07:00→12:00)
[2017-02-25] MEDS ORDERED: D5W 1,000 ML IV SCH (07:00)
[2017-02-25 08:15] VITALS: RESP 18
[2017-02-25] MEDS: levETIRAcetam 1,000 MG in NS 100 ML IV SCH (08:54)
[2017-02-25] MEDS: ENOXAPARIN 40 MG/0.4 ML SYR SC SCH (09:03)
[2017-02-25] MEDS: ASPIRIN 81 MG CHEWABLE TAB PO SCH (09:07)
[2017-02-25] MEDS: ATORVASTATIN CALCIUM 40 MG TAB PO SCH (09:07)
[2017-02-25] MEDS: hydrALAZINE 25 MG TAB PO SCH (09:07)
[2017-02-25] MEDS: METOPROLOL TARTRATE 100 MG TAB PO SCH (09:08)
[2017-02-25] MEDS: LISINOPRIL 40 MG TAB PO SCH (09:09)
[2017-02-25] MEDS: lamoTRIgine 100 MG TAB PO SCH (09:09)
[2017-02-25] MEDS: LUBIPROSTONE 24 MCG CAP PO SCH (09:10)
[2017-02-25] MEDS: oxyCODONE CR 30 MG TAB PO SCH (09:45)
--- NOTE | 2017-02-25 10:28 | PDIAF ---
- Diagnosis Diagnosis: falls, hypertension Code Status: Full Code - Medication Management Discharge Medications: Medications to Continue on Transfer Keppra 1000 mg 1,000 mg PO BID 08/04/15 [Last Taken 02/21/17] lamOTRIGine [Lamotrigine] 200 mg PO TID 08/05/15 [Last Taken 02/21/17] oxyCODONE HCL/ACETAMINOPHEN [Percocet 10-325 mg Tablet] 1 each PO Q6H PRN [Last Taken 02/21/17] Amitiza 24 mcg PO BID 02/21/17 [Last Taken 02/21/17] Lisinopril [Zestril 40 mg (*)] 40 mg PO DAILY 02/22/17 [Last Taken 02/21/17] oxyCODONE HCL [Oxycontin] 30 mg PO BID 02/22/17 [Last Taken 02/21/17] Aspirin [Aspirin 81mg (*)] 81 mg PO DAILY tab.chew 02/25/17 [Last Taken Unknown ] Atorvastatin Calcium [Lipitor 40 mg (*)] 40 mg PO DAILY tab 02/25/17 [Last Taken Unknown] Ipratropium/Albuterol [Duoneb (*)] 3 ml IH PRN PRN #0 deyvial 02/25/17 [Last Taken Unknown] Metoprolol Tartrate [Lopressor 100 mg (*)] 50 mg PO BID tab 02/25/17 [Last Taken Unknown] hydrALAZINE [Apresoline] 25 mg PO TID #90 tab 02/25/17 [Last Taken Unknown] Discharge Medications: Refer to the Discharge Home Medication list for PRN reason. - Orders Services needed: Registered Nurse, Certified Tank Car Inspector, Master Mercerizer Machine Operator , Physical Therapy Diet Recommendation: cardiac -low fat low salt Diet Texture: Dysphagia 3 - Advanced - Moist, Bite-Size, Thin Liquids, Meds Whole w/Liquids, Meds Whole in Puree - Follow Up Care Current Providers and Referrals: Patient,NotPresent [Primary Care Provider] - As per Instructions
--- NOTE | 2017-02-25 13:43 | HOSPPROG ---
Hospitalist Progress Note Assessment/Plan: #Old lacunar stroke: likely due to uncontrolled BP. LVH on TTE, no PFO. Goal is to optimize medical management. ASA, statin, BP control. PT/OT. #Hypertensive urgency: BP better controlled. Lisinopril, Hydral TID, BB. Stopped verapamil with bradycardia and no clear indication for dual AV-lesly. No h/o a fib #Med error: was dosed Epivir x 2 yesterday with subsequent diarrhea. Explained to pt. Med event was done. Loperamide #CAD: TTE shows LVH, no WMA. Some EKG changes, Lexiscan negative #Hypokalemia: repleted #Acute encephalopathy: resolved #HLD: statin #h/o seizures: no recent episodes. Alysa Gomez #Tobacco abuse: counseled on cessation #Diet: cardiac #DVT ppx: Lovenox #Disp: DC today Subjective: no acute events. No MONROY, cP or SOB Objective: Vital Signs Temp Pulse Resp BP Pulse Ox 36.7 C 65 18 134/78 H 94 02/25/17 08:00 02/25/17 08:00 02/25/17 08:00 02/25/17 09:09 02/25/17 08:00 Laboratory Results 02/25/17 04:24 02/24/17 02/25/17 02/26/17 05:59 05:59 05:59 Intake Total 680 770 Balance 680 770 - Physical Exam Constitutional: no apparent distress Eyes: PERRL Ears, Nose, Mouth, Throat: moist mucous membranes Cardiovascular: regular rate and rhythym, no murmur, rub, or gallop Respiratory: no respiratory distress, no rales or rhonchi Gastrointestinal: normoactive bowel sounds, soft, non-tender abdomen Skin: warm Musculoskeletal: other Neurologic: AAOx3, CN II-XII Intact Psychiatric: flat affect ICD10 Worksheet Patient Problems: Problems Problem Status Onset Hypotension Acute Acute renal failure Acute Fall Acute Constipation Acute Weakness Acute
[2017-02-25 15:09] VITALS: BP 134/90; PULSE 55; TEMP 98.1; O2SAT 100
--- NOTE | 2017-02-25 22:03 | GDS ---
[f rep st] DISCHARGE SUMMARY DISCHARGE DIAGNOSES: 1. Falls versus mechanical falls. 2. Old lacunar stroke. 3. Hypertensive urgency. 4. Medication error. 5. Coronary artery disease. 6. Hypokalemia. 7. Acute metabolic encephalopathy. 8. Hyperlipidemia. 9. History of seizures. HISTORY OF PRESENT ILLNESS: The patient is a 67-year-old male with history of uncontrolled hypertension, seizure disorder, presenting with 2 days of increased weakness and confusion. He said he went for a walk and noticed his legs became more weak. He says he has had several falls or related to his dog tripping him. He describes weakness in the legs that is equal on both sides, and has been complaining of some ringing in his ear. He is normally alert and oriented x3. At time of interview he was only alert and oriented x2. He said he has been compliant with his medications. However, daughter says they find them intermittently around the house. He does have a visiting nurse who provides pills in a machine, but it appears that he is not taking them. He has not had any recent seizures. Denies chest pain, shortness of breath, PND, or orthopnea. HOSPITAL COURSE BY PROBLEM: 1. Mechanical fall: Suspect this is multifactorial with uncontrolled hypertension, deconditioning. CT of head demonstrated old lacunar infarct. Neurology evaluated. Statin, aspirin, and blood pressure control. 2. Falls: discharged to rehab. 3. Hypertensive urgency: Blood pressure >200 at admission. He has not been compliant with his medications; hiss daughters have found pills around the house. Goal blood pressure is 130-140s. This has improved, but will need up- titration as an outpatient. Continue lisinopril, metoprolol, and hydralazine. 4. Coronary artery disease: The patient with risk factors and EKG changes. He previously had anterior T-wave lesions, but these were deeper. Suspected secondary to hypertension urgency, but given risk factors, evaluated with a nuclear stress test that was negative. 5. Hypokalemia: Repleted. 6. Acute encephalopathy: Secondary to elevated blood pressure. This has resolved. 7. Hyperlipidemia: Statin. 8. History of seizures: No recent episode. Continue Keppra and Lamictal. 9. Medication error: The patient was dosed on his first evening Epivir, which is an HIV medication, with subsequent diarrhea. I explained this to both the patient and family, and explained to them a medication error event will be placed. This diarrhea has resolved. 10. Active tobacco use. The patient was counseled on cessation. 11. Disposition: The patient is stable for discharge to rehab. 12. Follow up blood pressure, up titrate as needed. The time spent on discharge greater than 35 minutes coordinating with case management and discussing medication management with daughter at home. /[id number]/MODL MTDD
== END 2017-02-25 16:18 | DRG 305 ==
LOC: EDUNIT# → F2N 02-22 08:19 → F3E 02-23 15:52
PROVIDERS: ADMIT Hospitalist; ATTEND Internal Medicine
DX: I16.0 Hypertensive urgency (principal); I67.4 Hypertensive encephalopathy; E87.6 Hypokalemia; R94.31 Abnormal electrocardiogram [ECG] [EKG]; K52.1 Toxic gastroenteritis and colitis; T37.5X5A Adverse effect of antiviral drugs, initial encounter; M17.0 Bilateral primary osteoarthritis of knee; G89.29 Other chronic pain; I69.354 Hemiplegia and hemiparesis following cerebral infarction affecting left non-dominant side; R29.6 Repeated falls; F17.210 Nicotine dependence, cigarettes, uncomplicated; J44.9 Chronic obstructive pulmonary disease, unspecified; E78.5 Hyperlipidemia, unspecified; I25.10 Atherosclerotic heart disease of native coronary artery without angina pectoris; G40.909 Epilepsy, unspecified, not intractable, without status epilepticus
CPT/HCPCS: 80305; 92507-GN; 92523-GN; 92610-GN; 96374; 97116-GP; 97162-GP; 97166-GO; 97535-GO; A9500; G8978-GP-CJ; G8979-GP-CI; G8987-GO-CJ; G8988-GO-CI; G8996-GN-CH; G8997-GN-CH; G9168-GN-CL; G9169-GN-CJ; G9170-GN-CJ; J1650; J1953; J2785; J3490; Q9967

== ENCOUNTER 2018-10-23 13:14 | Emergency (ER) | payer OTHER, MEDICAID ==
[2018-10-23] MEDS ORDERED: hydrALAZINE 25 MG TAB PO ONE (14:05)
--- NOTE | 2018-10-23 14:15 | EDPHY ---
H & P Stated Complaint: High Blood pressure sent by PCP Time Seen by Provider: 10/23/18 13:48 HPI/ROS: CHIEF COMPLAINT: Hypertension HISTORY OF PRESENT ILLNESS: This is a 68-year-old gentleman with a long history of hypertension who reports that per his home health aide his blood pressure has been running high for the past several weeks. Patient reports he has had readings of 170/120, 164/110, 162/94. Blood pressure reading today at 170/120 is what prompted his aide to suggest he come to the emergency department. In July he had some additions to his blood pressure medications and he currently takes Verapamil 120 mg sustained release once a day, metoprolol 100 mg twice daily, lisinopril 40 mg twice daily, and is written to take hydralazine 25 mg three times daily. However the patient and his daughter both report that he takes no medications at lunch time and so my guess is that the hydralazine is actually being dosed 2 times a day. Patient denies any complaints. He did report being slightly weak earlier this week and his daughter states he seems wobbly when his blood pressure is high, but those symptoms have resolved. Patient does report that his arthritis has been acting up lately causing pain in his hands. No fever, chills, chest pain, shortness of breath, palpitations, vomiting, diarrhea, urinary complaints, headache, lightheadedness. REVIEW OF SYSTEMS: A comprehensive 10 system review of systems was reviewed and is otherwise negative aside from elements mentioned in the history of present illness and medical decision making. PAST MEDICAL HISTORY: Hypertension, arthritis, seizure disorder SOCIAL HISTORY: Lives independently. Here with his daughter. VITAL SIGNS Reviewed by me. GENERAL: Well-developed, well-nourished, male, resting comfortably in no respiratory distress. HEENT: Atraumatic. Eyes: No icterus, no injection. Sclerae are slightly muddy. Mouth: moist mucous membranes. No erythema or lesions. Neck: supple with no adenopathy. No JVD. LUNGS: Clear to auscultation bilaterally, no wheezes, rhonchi or rales. CARDIAC: Regular rate and rhythm, no rubs, murmurs or gallops. ABDOMEN: Soft, nontender, nondistended, bowel sounds normal. BACK: No CVA tenderness. EXTREMITIES: No trauma. No edema. Signs of chronic arthritis in the hands with deformities of the joints. NEURO: Alert and oriented, grossly nonfocal. SKIN: Warm and dry, no rash. PSYCHIATRIC: Normal mentation, no agitation. 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, craniotomy due to brain aneurysm, frequent falls, CVA?, - Social History Smoking Status: Current every day smoker Constitutional: Initial Vital Signs Temperature (C) 36.7 C 10/23/18 13:18 Heart Rate 59 L 10/23/18 13:18 Respiratory Rate 16 10/23/18 13:18 Blood Pressure 198/139 H 10/23/18 13:18 O2 Sat (%) 96 10/23/18 13:18 O2 Delivery Mode Room Air Allergies/Adverse Reactions: No Known Allergies Allergy (Unverified 10/23/18 14:27) Home Medications: Medication Instructions Recorded Keppra 1000 mg 1,000 mg PO BID 08/04/15 lamOTRIGine [Lamotrigine] 200 mg PO TID 08/05/15 oxyCODONE HCL/ACETAMINOPHEN 1 each PO Q6H PRN 08/05/15 [Percocet 10-325 mg Tablet] Amitiza 24 mcg PO BID 02/21/17 Lisinopril [Zestril 40 mg (*)] 40 mg PO DAILY 02/22/17 oxyCODONE HCL [Oxycontin] 30 mg PO BID 02/22/17 Atorvastatin Calcium [Lipitor 40 40 mg PO DAILY tab 02/25/17 mg (*)] Metoprolol Tartrate [Lopressor 100 50 mg PO BID tab 02/25/17 mg (*)] hydrALAZINE [Apresoline] 25 mg PO TID #90 tab 02/25/17 Methotrexate 10/23/18 Miralax 17 gm (*) 10/23/18 Prednisone 10/23/18 Verapamil 10/23/18 Medical Decision Making - Diagnostics EKG Interpretation: 12-LEAD EKG: Please see the full report in [facility]. My interpretation: Normal sinus rhythm, nonspecific TWI lateral leads ED Course/Re-evaluation: 68-year-old gentleman with a history of chronic hypertension on 4 antihypertensives presents with blood pressure readings which have been high lately. Patient himself has no complaints. On review of the patient's medications, it seems that the patient may in fact not be taking his hydralazine in 3 times a day but rather is only taking twice a day. Evaluation emergency department largely unremarkable. Patient has EKG demonstrating nonspecific T-wave inversion, normal troponin, normal renal functions. He received a dose of hydralazine in his blood pressure is trending downward. I discussed his course with on-call physician for [facility]. They will see the patient on Friday or Friday of next week. We discussed the fact that I believe the patient is actually only taking his eye drowsy in 2 times a day. I also stressed to the patient and family the importance of taking the hydralazine 3 times a day, monitoring his blood pressure over the weekend, and follow up. Differential Diagnosis: Differential diagnoses for the patient's symptom complex was considered including but not limited to hypertension, medication noncompliance, acute coronary disease, renal insufficiency, congestive heart failure. - Data Points Laboratory Results: Laboratory Results 10/23/18 14:20 10/23/18 14:20 Medications Given: Discontinued Medications Hydralazine HCl (Apresoline) 25 mg PO EDNOW ONE Stop: 10/23/18 14:06 Last Admin: 10/23/18 14:28 Dose: 25 mg Point of Care Test Results: Chemistry 10/23/18 15:02 POC Troponin I 0.01 ng/mL ng/mL (0.00-0.08) Departure - Departure Disposition: Home, Routine, Self-Care Clinical Impression: Hypertension Qualifiers: Hypertension type: unspecified Qualified Code(s): I10 - Essential (primary) hypertension Condition: Good Instructions: Chronic Hypertension (ED), Hypertension in the Older Adult (ED) Additional Instructions: Please take your hypertensive medications as previously directed. Lisinopril 40 mg by mouth 2 times a day Metoprolol 100 mg by mouth 2 times a day Hydralazine 25 mg by mouth 3 times a day. Verapamil 120 mg once a day. Please follow up with primary care physician tomorrow without fail for re- examined and recheck. Return to the emergency department or seek care urgently if you developed chest pain, significant shortness of breath, or other concerns. Please continue taking her other medications as directed. Referrals: Tara Jasmine MD [Primary Care Provider] - As per Instructions
[2018-10-23 14:38] LABS: PLATELET COUNT 176 10^3/uL (150-400)
[2018-10-23 15:38] VITALS: BP 184/115
--- NOTE | 2018-10-24 15:37 | CPEKG ---
Test Reason : OPEN Blood Pressure : / mmHG Vent. Rate : 059 BPM Atrial Rate : 060 BPM P-R Int : 329 ms QRS Dur : 096 ms QT Int : 462 ms P-R-T Axes : 043 -11 119 degrees QTc Int : 458 ms Sinus rhythm Sinus pause Prolonged ND interval Nonspecific T abnormalities, lateral leads Confirmed by Maricel Mauricio ([id number]) on 10/24/2018 3:36:54 PM Referred By: Maricel Mauricio Confirmed By:Maricel Mauricio
== END 2018-10-23 15:37 | disposition home or self-care (01) ==
DX: I10 Essential (primary) hypertension (principal); F17.200 Nicotine dependence, unspecified, uncomplicated
CPT/HCPCS: 84484-ER

== ENCOUNTER → 2018-11-12 | Outpatient (CLI) | payer OTHER, MEDICAID ==
[~2018-11-12] MED LIST: IOPAMIDOL (ISOVUE 370) 100 ML BTL IV ONE
== END ==
LOC: FIMAGING 07:55
PROVIDERS: ATTEND Internal Medicine Pulmonary Disease
DX: R91.8 Other nonspecific abnormal finding of lung field (principal); J98.11 Atelectasis; I71.2 Thoracic aortic aneurysm, without rupture; F17.200 Nicotine dependence, unspecified, uncomplicated
CPT/HCPCS: 71275; Q9967; 82565-PO

== ENCOUNTER 2019-01-01 09:51 | Inpatient (IN) | payer OTHER, MEDICAID | END 2019-01-05 11:00 | LOC: F2W 01-03 17:38 → F2N 13:22 ==

== ENCOUNTER 2019-01-08 02:11 | Emergency (ER) | payer OTHER, MEDICAID | END 2019-01-08 04:37 | disposition home or self-care (01) ==